=== PATIENT | male | born 1985 | race African-American/Black ===

== ENCOUNTER 2023-02-13 12:40 | Emergency (ER) | payer OTHER ==
[~2023-02-13] VITALS: Ht 182.9 cm; Wt 73.0 kg
[2023-02-13 12:44] VITALS: TEMP 98.9
[2023-02-13] MEDS ORDERED: HALOPERIDOL LACTATE 5MG/ML VIAL IM ONE (13:45)
[2023-02-13] MEDS ORDERED: MIDAZOLAM HCL 2 MG/2 ML VIAL IM ONE (14:15)
[2023-02-13 14:32] VITALS: O2SAT 100
[2023-02-13 16:00] VITALS: BP 132/86; PULSE 106; RESP 22
== END 2023-02-13 16:51 ==
LOC: ER 12:40
DX: F19.129 Other psychoactive substance abuse with intoxication, unspecified (principal); R45.1 Restlessness and agitation; F15.90 Other stimulant use, unspecified, uncomplicated; F17.200 Nicotine dependence, unspecified, uncomplicated
CPT/HCPCS: 99284; 82962; 96372; J1630; J2250